=== PATIENT | male | born 1955 ===

== ENCOUNTER 2020-06-06 10:44 | Emergency (ER) | payer BC, MEDICARE ==
[2020-06-06 11:13] VITALS: BP 139/91; PULSE 63
--- NOTE | 2020-06-06 11:17 | EDM.PDOC ---
ED HPI GENERAL MEDICAL PROBLEM - General Chief Complaint: Respiratory Problem Stated Complaint: COUGH Time Seen by Provider: 06/06/20 10:47 Source of Information: Reports: Patient - History of Present Illness INITIAL COMMENTS - FREE TEXT/NARRATIVE: Patient presents with cough, generalized weakness, and fatigue. Started a couple of weeks ago, diagnosed with bronchitis/PNA and given 5 day course of antibiotic (Zithromax?) and was feeling slightly better but seems to be worsening. Cough improving, but generalized weakness/fatigue worsening. Denies fevers, chest pain. No LE pain/swelling/redness. No known COVID-19 exposure. - Related Data Allergies Allergy/AdvReac Type Severity Reaction Status Date / Time Penicillins Allergy Itching Verified 06/06/20 11:13 atorvastatin calcium AdvReac Muscle Verified 06/06/20 11:13 [From Lipitor] Weakness Home Meds: Home Meds traZODone 150 mg PO BEDTIME PRN 02/27/14 [History] Albuterol Sulfate [Proair Hfa] 1 - 2 inhalation IH Q4HR PRN 07/21/15 [History] Fluticasone Propionate [Flonase Allergy Relief] 1 - 2 sprays NASBOTH DAILY 07/21/15 [History] Magnesium 1 tab PO DAILY 07/21/15 [History] Multivitamin [Multivitamins] 1 tab PO DAILY 05/08/16 [History] Gabapentin [Neurontin] 300 mg PO DAILY 06/06/20 [History] Past Medical History HEENT History: Reports: Other (See Below) Other HEENT History: chronic congestion Cardiovascular History: Reports: High Cholesterol Respiratory History: Reports: Other (See Below) Other Respiratory History: smokes 2 pks of cigarettes per day Other Gastrointestinal History: hx stomach ulcer Psychiatric History: Reports: Anxiety, Depression Dermatologic History: Reports: Other (See Below) Other Dermatologic History: cancer removed below left eye - Past Surgical History Musculoskeletal Surgical History: Reports: Knee Replacement Social & Family History - Family History Oncologic: Reports: Brain, Lung ED ROS GENERAL - Review of Systems Review Of Systems: Comprehensive ROS is negative, except as noted in HPI. ED EXAM, GENERAL - Physical Exam Exam: See Below Exam Limited By: No Limitations General Appearance: Alert, WD/WN, No Apparent Distress Throat/Mouth: Normal Inspection, Normal Lips, Normal Teeth, Normal Gums, Normal Oropharynx, Normal Voice, No Airway Compromise Head: Atraumatic, Normocephalic Neck: Normal Inspection Respiratory/Chest: No Respiratory Distress, Lungs Clear, Normal Breath Sounds, No Accessory Muscle Use Cardiovascular: Normal Peripheral Pulses, Regular Rate, Rhythm, No Edema, Other (LE symmetric w/o TTP/warmth/erythema) GI/Abdominal: Soft, Non-Tender Extremities: Normal Inspection Neurological: Alert, Oriented Psychiatric: Normal Affect, Normal Mood Skin Exam: Warm, Dry, Intact, Normal Color EKG INTERPRETATION EKG Date: 06/06/20 Time: 11:20 Rhythm: NSR Rate (Beats/Min): 53 [place]: Normal P-Wave: Present QRS: Normal ST-T: Normal QT: Normal OH/PQ Interval: 151 EKG Interpretation Comments: sinus bradycardia at 53bmp, otherwise non-ischemic without emergent/urgent findings identified Course - Vital Signs Last Recorded V/S: Last Vital Signs Temp 96.7 F L 06/06/20 11:10 Pulse 63 06/06/20 11:10 Resp 18 06/06/20 11:10 BP 139/91 H 06/06/20 11:10 Pulse Ox 95 06/06/20 11:10 - Orders/Labs/Meds Orders: Active Orders 24 hr Category Date Time Status EKG Documentation Completion [RC] STAT Care 06/06/20 11:20 Active Labs: Laboratory Tests 06/06/20 06/06/20 06/06/20 Range/Units 11:35 11:35 12:26 WBC 6.53 (4.0-11.0) K/uL RBC 4.59 (4.50-5.90) M/uL Hgb 14.3 (13.0-17.0) g/dL Hct 42.1 (38.0-50.0) % MCV 91.7 (80.0-98.0) fL MCH 31.2 (27.0-32.0) pg MCHC 34.0 (31.0-37.0) g/dL RDW Std Deviation 42.9 (28.0-62.0) fl RDW Coeff of Ariana 13 (11.0-15.0) % Plt Count 181 (150-400) K/uL MPV 9.10 (7.40-12.00) fL Neut % (Auto) 67.1 (48.0-80.0) % Lymph % (Auto) 20.8 (16.0-40.0) % [place] % (Auto) 10.4 (0.0-15.0) % Eos % (Auto) 1.2 (0.0-7.0) % Baso % (Auto) 0.5 (0.0-1.5) % Neut # (Auto) 4.4 (1.4-5.7) K/uL Lymph # (Auto) 1.4 (0.6-2.4) K/uL [place] # (Auto) 0.7 (0.0-0.8) K/uL Eos # (Auto) 0.1 (0.0-0.7) K/uL Baso # (Auto) 0.0 (0.0-0.1) K/uL Sodium 139 (136-148) mmol/L Potassium 4.1 (3.5-5.1) mmol/L Chloride 104 (98-107) mmol/L Carbon Dioxide 22.6 (21.0-32.0) mmol/L BUN 16 (7.0-18.0) mg/dL Creatinine 1.0 (0.8-1.3) mg/dL Est Cr Clr Drug Dosing 78.44 mL/min Estimated GFR (MDRD) > 60.0 ml/min Glucose 104 (74-106) mg/dL Calcium 8.4 L (8.5-10.1) mg/dL Magnesium 1.8 (1.8-2.4) mg/dL Total Bilirubin 0.3 (0.2-1.0) mg/dL AST 19 (15-37) IU/L ALT 36 (14-63) IU/L Alkaline Phosphatase 78 (46-116) U/L Troponin I < 0.050 (0.000-0.056) ng/mL Total Protein 6.8 (6.4-8.2) g/dL Albumin 3.6 (3.4-5.0) g/dL Globulin 3.2 (2.6-4.0) g/dL Albumin/Globulin Ratio 1.1 (0.9-1.6) COVID-19 ([place]) NEGATIVE (NEGATIVE) - Re-Assessments/Exams Free Text/Narrative Re-Assessment/Exam: 06/06/20 11:57 Will get basic labs and CXR. Will swab for COVID-19. 06/06/20 12:13 Blood labs and CXR unremarkable. Will f/u COVID swab and dispo accordingly. Only abnormality noted is bradycardia to 50s; this could explain patient's fatigue but does not warrant in-patient workup. 06/06/20 13:00 COVID testing negative. Will d/c patient with PMD f/u. He has a primary and agrees with this plan. Departure - Departure Time of Disposition: 13:01 Disposition: Home, Self-Care 01 Condition: Good Clinical Impression: Generalized weakness - Discharge Information Instructions: Weakness, [id number] Referrals: Nitish Mitchell MD [Primary Care Provider] - Forms: ED Department Discharge Additional Instructions: The following information is given to patients seen in the emergency department who are being discharged to home. This information is to outline your options for follow-up care. We provide all patients seen in our emergency department with a follow-up referral. The need for follow-up, as well as the timing and circumstances, are variable depending upon the specifics of your emergency department visit. If you don't have a primary care physician on staff, we will provide you with a referral. We always advise you to contact your personal physician following an emergency department visit to inform them of the circumstance of the visit and for follow-up with them and/or the need for any referrals to a consulting specialist. The emergency department will also refer you to a specialist when appropriate. This referral assures that you have the opportunity for follow-up care with a specialist. All of these measure are taken in an effort to provide you with optimal care, which includes your follow-up. Under all circumstances we always encourage you to contact your private physician who remains a resource for coordinating your care. When calling for follow-up care, please make the office aware that this follow-up is from your recent emergency room visit. If for any reason you are refused follow-up, please contact the [facility] Emergency Department at and asked to speak to the emergency department charge nurse. Follow up with a primary care physician in 1-3 days; if you do not already have one, you can utilize either of the below clinics and let them know you were seen in the ED and require smith follow-up: [facility] [address] [place] [address] My [facility] [address] [place] [address] Sepsis Event Note (ED) - Evaluation Sepsis Screening Result: No Definite Risk - Focused Exam Vital Signs: Vital Signs Temp Pulse Resp BP Pulse Ox 06/06/20 11:10 96.7 F L 63 18 139/91 H 95 - My Orders Last 24 Hours: My Active Orders 06/06/20 11:20 EKG Documentation Completion [RC] STAT - Assessment/Plan Last 24 Hours: My Active Orders 06/06/20 11:20 EKG Documentation Completion [RC] STAT
--- NOTE | 2020-06-06 11:53 | CR ---
Chest: Frontal view of the chest was obtained utilizing portable technique. Comparison: Prior chest x-ray of 09/08/19. Heart size and mediastinum are normal. Lungs are clear with no acute parenchymal change. Degenerative spurring is noted within the right shoulder. Previous resection of the distal right clavicle is noted. No acute osseous finding is seen. Impression: 1. Findings as noted above. 2. Nothing acute is seen. Diagnostic code #2 This report was dictated in MDT
[2020-06-06 12:10] LABS: BLOOD UREA NITROGEN,BUN 16 mg/dL (7.0-18.0); CARBON DIOXIDE,CO2 22.6 mmol/L (21.0-32.0); CHLORIDE,CL 104 mmol/L (98-107); GLUCOSE RANDOM 104 mg/dL (74-106); POTASSIUM,K 4.1 mmol/L (3.5-5.1); SODIUM,NA 139 mmol/L (136-148)
== END 2020-06-06 13:25 | disposition home or self-care (01) ==
LOC: MW.ED 10:44
DX: R53.1 Weakness (principal); R00.1 Bradycardia, unspecified; F17.210 Nicotine dependence, cigarettes, uncomplicated; Z20.828 Contact with and (suspected) exposure to other viral communicable diseases; Z88.0 Allergy status to penicillin; Z88.8 Allergy status to other drugs, medicaments and biological substances
CPT/HCPCS: 71045; 71045-26; 80053; 83735; 84484; 85025; 93005; 99283; 99285-25; U0002